=== PATIENT | female | born 2005 | race African-American/Black ===

== ENCOUNTER 2025-06-18 11:58 | Emergency (ER) | payer MEDICAID ==
[~2025-06-18] VITALS: Ht 177.8 cm; Wt 59.0 kg
[2025-06-18 12:05] VITALS: O2SAT 100
[2025-06-18 14:52] LABS: CLARITY URINE CLOUDY (CLEAR); COLOR URINE YELLOW (YELLOW); GLUCOSE URINE NEGATIVE (NEGATIVE); KETONES URINE NEGATIVE (NEGATIVE); LEUKOCYTE ESTERASE URINE 2+ (NEGATIVE); NITRITE URINE NEGATIVE (NEGATIVE); OCCULT BLOOD URINE NEGATIVE (NEGATIVE); PH URINE 6.0 (4.5-8.0); PROTEIN URINE TRACE (NEGATIVE); SPECIFIC GRAVITY URINE 1.030 (1.005-1.030); UROBILINOGEN URINE 0.2 E.U./dL (0.2-1.0)
[2025-06-18] MEDS: IBUPROFEN 600MG TABLET PO ONE (14:56)
[2025-06-18 15:01] LABS: BACTERIA URINE 1+; SQUAMOUS EPITHELIAL CELL URINE 2+ /lpf (RARE/1+); WBC URINE 25-50 /hpf (0-2); YEAST URINE NONE SEEN
[2025-06-18 15:06] LABS: BASOPHILS % 0.7 % (0.0-2.0); EOSINOPHILS % 2.2 % (0.0-5.0); HEMATOCRIT. 39.8 % (36.0-48.0); HEMOGLOBIN. 12.7 g/dL (12.0-16.0); LYMPHOCYTES % 28.7 % (20.0-50.0); MEAN PLATELET VOLUME 8.8 fl (7.4-10.4); MONOCYTES % 7.2 % (2.0-8.0); NEUTROPHILS % 61.2 % (40.0-76.0); PLATELET 261 x1000/uL (130-400); RED BLOOD CELL COUNT 5.23 mill/uL (4.2-5.4); RED CELL DISTRIBUTION WIDTH 15.4 % (11.6-14.6)
[2025-06-18 15:22] LABS: CREATININE 0.9 mg/dL (0.6-1.0); HCG SCREEN NEGATIVE; UREA NITROGEN BLOOD 14 mg/dL (9-23)
[2025-06-18 15:23] LABS: TROPONIN I HIGH SENSITIVITY 12 ng/L (3.0-34)
[2025-06-18 15:24] LABS: ASPARTATE AMINOTRANSFERASE 19 IU/L (<34); BILIRUBIN DIRECT 0.1 mg/dL (<=3.0); BILIRUBIN TOTAL 0.3 mg/dL (0.1-1.0); PROTEIN TOTAL 8.1 g/dL (6.0-8.3)
[2025-06-18] MEDS ORDERED: DOXY150T23 MT (16:13)
[2025-06-18] MEDS ORDERED: BO1 TP (16:13)
[2025-06-18] MEDS: CEFTRIAXONE SODIUM 500MG VIAL IM ONE (16:21)
[2025-06-18] MEDS: BACITRACIN ZINC OINT UDPKT TOP ONE (16:21)
[2025-06-18] MEDS: FLUCONAZOLE 150MG TABLET PO ONE (16:21)
[2025-06-18 16:38] VITALS: BP 121/70; PULSE 78; RESP 15; TEMP 36.8; O2SAT 100
[2025-06-20 15:12] LABS: CHLAMYDIA TRACHOMATIS NAA Negative (Negative); NEISSERIA GONORRHOEAE NAA Negative (Negative)
== END 2025-06-18 16:40 | disposition left against medical advice (07) ==
LOC: ER 12:08
DX: T74.21XA Adult sexual abuse, confirmed, initial encounter (principal); B37.0 Candidal stomatitis; A54.9 Gonococcal infection, unspecified; R60.9 Edema, unspecified; J45.909 Unspecified asthma, uncomplicated; Z79.899 Other long term (current) drug therapy; Y92.89 Other specified places as the place of occurrence of the external cause
CPT/HCPCS: 99285; 71045; 86592; 87491; 87591; 80076; 80048; 81003; 84703; 85025; 87086; 84484; 36415; 93005; 96372; J0696